=== PATIENT | female | born 1980 | race Caucasian/White ===

== ENCOUNTER 2021-07-11 08:31 | Outpatient (REF) | payer OTHER, SELFPAY ==
--- NOTE | ~2021-07-11 | MM_ITS ---
EXAMINATION: MM SCREENING DIGITAL BREAST TOMOSYNTHESIS, BILATERAL CLINICAL INFORMATION: Screening. Asymptomatic. The lifetime risk of breast cancer based on the Tyrer-Cuzick Model is 12.4%. COMPARISON: Mammography: None TECHNIQUE: Digital breast tomosynthesis is performed in both the craniocaudal and mediolateral oblique views along with computer-aided detection (CAD). Synthesized 2D images are generated from the tomosynthesis. FINDINGS: There are scattered areas of fibroglandular density (ACR BI-RADS breast composition Category b). There are no significant masses, abnormal calcifications, or other abnormalities. MM/MM tomosynthesis screening BI IMPRESSION: There are no significant changes from prior study. ASSESSMENT: BI-RADS 1: Negative RECOMMENDATION: Routine annual mammography screening. This patient's information was entered into a reminder system with a target due date for their next mammogram.
== END 2021-07-11 08:32 | disposition home or self-care (01) ==
LOC: HO.MAMMO 08:31
PROVIDERS: Visit Provider Internal Medicine
DX: Z12.31 Encounter for screening mammogram for malignant neoplasm of breast (principal)
CPT/HCPCS: 77063; 77067

== ENCOUNTER 2021-08-16 11:32 | Outpatient (REF) | payer OTHER, SELFPAY ==
[2021-08-17 03:00] LABS: CT PCR NOT DETECTED (Not Detect.); NG PCR NOT DETECTED (Not Detect.)
[2021-08-17 09:47] LABS: BV Int Neg Control Negative (Negative); BV Int Pos Control Positive (Positive)
[2021-08-22 05:51] LABS: HPV mRNA E6/E7 rflx Not Detected (Not Detected)
== END 2021-08-16 11:33 | disposition home or self-care (01) ==
LOC: HO.LAB 11:32
PROVIDERS: PCP Internal Medicine; Visit Provider Advanced Practice Midwife
DX: Z01.411 Encounter for gynecological examination (general) (routine) with abnormal findings (principal); Z11.51 Encounter for screening for human papillomavirus (HPV); B20 Human immunodeficiency virus [HIV] disease; Z20.2 Contact with and (suspected) exposure to infections with a predominantly sexual mode of transmission; R94.8 Abnormal results of function studies of other organs and systems; Z97.5 Presence of (intrauterine) contraceptive device
CPT/HCPCS: 87480; 87491; 87510; 87591; 87624; 87660; 88142

== ENCOUNTER 2022-08-21 14:10 | Outpatient (REF) | payer OTHER, SELFPAY ==
--- NOTE | ~2022-08-21 | MM_ITS ---
EXAMINATION: MM SCREENING DIGITAL BREAST TOMOSYNTHESIS, BILATERAL CLINICAL INFORMATION: Screening. Asymptomatic. The lifetime risk of breast cancer based on the Tyrer-Cuzick Model is 17%. COMPARISON: Mammography: 07/11/2021 TECHNIQUE: Digital breast tomosynthesis is performed in both the craniocaudal and mediolateral oblique views along with computer-aided detection (CAD). Synthesized 2D images are generated from the tomosynthesis. FINDINGS: There are scattered areas of fibroglandular density (ACR BI-RADS breast composition Category b). There are no significant masses, abnormal calcifications, or other abnormalities. There is a small smooth stable nodule mid upper outer right breast possibly intramammary node, similar to prior exam. No developing density. There are bilateral nipple piercings. The axilla are unremarkable. MM/MM tomosynthesis screening BI IMPRESSION: No mammographic evidence of malignancy. ASSESSMENT: BI-RADS 2: Benign RECOMMENDATION: Routine annual mammography screening. This patient's information was entered into a reminder system with a target due date for their next mammogram.
== END 2022-08-21 14:11 | disposition home or self-care (01) ==
LOC: HO.MAMMO 14:10
PROVIDERS: PCP Internal Medicine; Visit Provider Internal Medicine
DX: Z12.31 Encounter for screening mammogram for malignant neoplasm of breast (principal)
CPT/HCPCS: 77063; 77067

== ENCOUNTER 2023-04-29 14:26 | Outpatient (AMB) | payer OTHER, SELFPAY ==
--- NOTE | 2023-04-29 14:28 | A.OFFPC_ITS ---
Vital Signs 04/29/23 14:29 Height 5 ft 5 in Weight 159 lb BMI 26.5 BP 110/78 Blood Pressure Location Lt brachial Position Sitting Pulse 65 Pulse Source Auscultation Intake Visit Reasons: Annual Exam Intake Note: Patient here for an annual physical exam Ophthalmic Photographer Required: No Accompanied by: Self / Same As Patient Allergies No Known Allergies Allergy (Verified 04/29/23 14:38) Medication List - Last Reconciled 04/29/23 by Olivia Jones MD bupropion HCl 300 mg PO DAILY copper (ParaGard T 380A) intrauterine dextroamphetamine-amphetamine 20 mg 1 tab PO BID bgzgyymerl-scvxrt-kebtjmv diso 100-300-300 mg (Delstrigo) tabs PO lorazepam 1 mg PO DAILY spironolactone 25 mg PO DAILY 90 days valacyclovir 1,000 mg PO TID 7 days Tobacco use date assessed: 04/29/23 Dental Screening Dental Screen Date: 04/29/23 Did you have a dental visit in the last 12 months?: Yes Did you have a dental problem in the last 6 months where you did not have access to dental care?: No Was dental information given to patient?: Patient has dentist HPI HPI Comments History of Present Illness Details This is a 43-year-old female with mild recurrent major depression and HIV that comes for her physical exam. Last mammogram was July 2022 and was normal. Last Pap smear was 2021 and was normal. She had a colonoscopy over 5 years ago and she has a 1st cousin that at 20 years old due to colon cancer. HIV is follow by Infectious Disease in stable with medications. Depression also follow by Psychiatry and has been stable with bupropion. [facility] Medical History (Updated 04/29/23 @ 14:46 by Olivia Jones MD) Overweight (BMI 25.0-29.9) SHIRA (generalized anxiety disorder) Mild recurrent major depression Seizures Depression with anxiety ADD (attention deficit disorder) HIV (human immunodeficiency virus infection) Surgical History No history of previous surgery Family History (Updated 04/29/23 @ 14:54 by Olivia Jones MD) Father Prostate cancer Mother No problems noted. Maternal Aunt Breast cancer Unknown Colon cancer, Onset Age: 20 Social History Housing: Apartment Alcohol intake: current Alcohol intake frequency: a few times a week Alcohol type: beer, wine and hard liquor Patient Tobacco Use Status: Current everyday Tobacco user Tobacco use type: Cigarette Cigarettes Per Day: 3 e-Cigarette/Vaping Use: Never Used Second Hand Smoke Exposure: Yes service: No Current occupational status: employed Current occupational exposures/hazards: No Cognitive needs: No Hearing needs: No Vision needs: Yes Questionnaire PHQ-9 Over the last 2 weeks, how often have you been bothered by any of the following problems? 1. Little interest or pleasure in doing things: not at all 2. Feeling down, depressed, or hopeless: not at all 3. Trouble falling or staying asleep, or sleeping too much: not at all 4. Feeling tired or having little energy: not at all 5. Poor appetite or overeating: not at all 6. Feeling bad about yourself - or that you are a failure or have let yourself or your family down: not at all 7. Trouble concentrating on things, such as reading the newspaper or watching television: not at all 8. Moving or speaking so slowly that other people could have noticed. Or the opposite - being so fidgety or restless that you have been moving around a lot more than usual: not at all 9. Thoughts that you would be better off or of hurting yourself in some way: not at all Total score: 0 Depression Screening Interpretation: Negative Depression Screening Done: Yes 61948 - PHQ-9 Billing: Yes Source: Developed by Drs. Elliott Sánchez, Yessy Mayberry, Jesse Mcelroy and colleagues, with an educational anatoliy from [employer]. Thrive Questionnaire Date Thrive assessed: 04/29/23 I am a: Patient What is your living situation today?: I have a steady place to live Within the past 12 months, did the food you bought not last and you didn't have the money to get more?: Never true Within the past 12 months, did you worry whether your food would run out before you got money to buy more?: Never true Do you have trouble paying for medicines?: No Do you have trouble getting transportation to medical appointments?: No Do you have trouble paying your heating and electricity bill?: No Do you have trouble taking care of your child, family member or friend?: No Do you have trouble with day-to-day activities such as bathing, preparing meals, shopping, managing finances, etc.?: No Are you currently unemployed and looking for a job?: No Are you interested in more education?: No Please select the resources that you would like help with: None Currently or been in a relationship where the following occur: no concerns reported AUDIT C Alcohol Use Questionnaire (AUDIT-C) 1. How often do you have a drink containing alcohol?: 2-4 times a month 2. How many drinks containing alcohol do you have on a typical day when you are drinking?: 1 or 2 3. How often do you have six or more drinks on one occasion?: Never Total Score: 2 Score Reviewed/Action Taken: No SHIRA-7 AMB Questionnaire SHIRA-7 Date SHIRA - 7 assessed: 04/29/23 Feeling nervous, anxious, or on edge: 0 = Not at all Not being able to stop or control worryin = Not at all Worrying too much about different things: 0 = Not at all Trouble relaxin = Not at all Being so restless that it is hard to sit still: 0 = Not at all Becoming easily annoyed or irritable: 0 = Not at all Feeling afraid as if something awful might happen: 0 = Not at all Total SHIRA-7 score (0-4 normal; 5-9 mild; 10-14 moderate; 15-21 severe): 0 Source: Developed by Drs. Elliott Sánchez, Yessy Mayberry, Jesse Mcelroy and colleagues, with an educational anatoliy from [employer]. SHIRA-7 Assessment Billing SHIRA-7 Assessment Tool: SHIRA-7 Assessment 13881 Review of Systems Const All systems reviewed & are unremarkable except as noted in HPI and below Eyes Reports no additional complaints, Denies change in vision and Denies other visual disturbances Card Denies chest pain at rest, Denies chest pain with activity, Denies edema, Denies irregular heart rhythm, Denies claudication, Denies dyspnea, Denies dyspnea on exertion, Denies orthopnea, Denies paroxysmal nocturnal dyspnea and Denies slow heart rate Resp Denies cough, Denies dyspnea and Denies dyspnea on exertion GI Denies abdominal pain, Denies change in bowel habits, Denies excessive flatus, Denies nausea and Denies vomiting Denies urinary incontinence, Denies urinary hesitancy and Denies urinary urgency Musc Denies abnormal gait, Denies atrophy, Denies deformity and Denies limited range of motion Skin/Breast Denies bleeding lesions, Denies changing lesions and Denies rash Neuro Denies abnormal gait and Denies lack of coordination Physical exam (Primary Care) Vital Signs: Last Vital Signs BP 110/78 04/29/23 14:29 BMI result Body Mass Index 26.5 Tobacco/Smoking Status: Tobacco use Status Tobacco use date assessed 04/29/23 04/29/23 14:35 Patient Tobacco Use Status Current everyday Tobacco 04/29/23 14:35 Tobacco use type Cigarette 04/29/23 14:35 e-Cigarette/Vaping Use Never Used 04/29/23 14:35 PHQ-9: PHQ-9 Score PHQ-9: Total score 0 04/29/23 14:35 Depression Screening Interpretation: Negative Thrive Assessment: Date of Thrive Assessment Date Thrive assessed 04/24/21 04/29/23 14:35 Currently or been in a relationship where the following occur: no concerns reported Const Orientation/consciousness: patient oriented x3 HENMT Head: Yes normal to inspection, Yes normocephalic and Yes atraumatic Ears: external ears normal Eyes General: appearance normal, both eyes and all related structures Eyelids: Yes eyelids normal Conjunctivae: conjunctivae normal Neck Neck: Yes normal visual inspection and Yes supple Resp Effort & Inspection: normal respiratory effort Auscultation: clear to auscultation bilaterally Cardio Jugular venous distension: no JVD Rate: regular rate Rhythm: regular rhythm Heart sounds: S1 normal heart sound present and S2 normal heart sound present GI Inspection: Yes normal to inspection Palpation (GI): Soft to palpation and nontender Auscultation: normal bowel sounds Skin General skin exam: no rashes or lesions noted Neuro General: patient oriented x3 and no focal motor deficits Extrem General: Yes full ROM Psych Appearance: grossly normal Assessment and Plan Assessment & Plan (1) Encounter for physical examination: Code(s): Z00.00 - Encounter for general adult medical examination without abnormal findings Plan: Repeat in a year (2) Mild recurrent major depression: Code(s): F33.0 - Major depressive disorder, recurrent, mild Plan: Continue bupropion. Follow-up with psychiatry. (3) HIV (human immunodeficiency virus infection): Code(s): B20 - Human immunodeficiency virus [HIV] disease Plan: Continue HAART. Follow-up with ID. Orders: Orders Comprehensive [place]. Panel Fast Today Z00.00 - Encounter for general adult medical examination without abnormal findings Lipid Panel Today Z00.00 - Encounter for general adult medical examination without abnormal findings Referrals Gastroenterology Referral Z12.11 - Encounter for screening for malignant [place] plasm of colon Coding Level of Care Code Est Pt Prev Care 40-64y(64538) Diagnoses Encounter for physical examination Z00.00 Mild recurrent major depression F33.0 HIV (human immunodeficiency virus infection) B20 Additional Codes SHIRA-7 Assessment Billing - HSIRA-7 Assessment Tool: SHIRA-7 Assessment 74799 ([id number]) Time Spent (min) 32
[2023-04-29 14:29] VITALS: BP 110/78; PULSE 65; BMI 26.5
== END 2023-04-29 14:51 | disposition home or self-care (01) ==
PROVIDERS: PCP Internal Medicine; Visit Provider Internal Medicine
DX: Z00.00 Encounter for general adult medical examination without abnormal findings (principal); F33.0 Major depressive disorder, recurrent, mild; B20 Human immunodeficiency virus [HIV] disease
CPT/HCPCS: 99396

== ENCOUNTER 2023-08-27 13:51 | Outpatient (REF) | payer OTHER, SELFPAY ==
--- NOTE | ~2023-08-27 | MM_ITS ---
EXAMINATION: MM SCREENING DIGITAL BREAST TOMOSYNTHESIS, BILATERAL CLINICAL INFORMATION: Screening. Asymptomatic. COMPARISON: Mammography: This study is compared with prior exams dating back to 2020. TECHNIQUE: Digital breast tomosynthesis is performed in both the craniocaudal and mediolateral oblique views along with computer-aided detection (CAD). Synthesized 2D images are generated from the tomosynthesis. FINDINGS: The breasts are almost entirely fatty (ACR BI-RADS breast composition Category a). The patient has bilateral nipple rings. There are no significant masses, abnormal calcifications, or other abnormalities. MM/MM tomosynthesis screening BI IMPRESSION: No mammographic evidence of malignancy. ASSESSMENT: BI-RADS BI-RADS 1 - Negative RECOMMENDATION: Routine annual mammography screening. 1 year F/U This examination should not preclude the clinical evaluation of a suspicious palpable abnormality. This patient's information was entered into a reminder system with a target due date for their next mammogram.
== END 2023-08-27 13:52 | disposition home or self-care (01) ==
LOC: HO.MAMMO 13:51
PROVIDERS: PCP Internal Medicine; Visit Provider Internal Medicine
DX: Z12.31 Encounter for screening mammogram for malignant neoplasm of breast (principal)
CPT/HCPCS: 77063; 77067

== ENCOUNTER → 2023-08-27 14:00 | Outpatient (BNV) | payer OTHER, SELFPAY | PROVIDERS: PCP Internal Medicine; Visit Provider Radiology Diagnostic Radiology | DX: Z12.31 Encounter for screening mammogram for malignant neoplasm of breast (principal) | CPT/HCPCS: 77063; 77067 ==

== ENCOUNTER 2024-05-03 13:55 | Outpatient (AMB) | payer OTHER, SELFPAY ==
--- NOTE | 2024-05-03 14:00 | A.OFFPC_ITS ---
Vital Signs 05/03/24 14:02 Height 5 ft 5 in Weight 160 lb 4 oz BMI 26.7 BP 110/68 Blood Pressure Location Lt brachial Position Sitting Pulse 58 Pulse Source Pulse Oximeter Pulse Oximetry (%) 98 Oxygen Delivery Method Room Air Intake Visit Reasons: Annual PE Intake Note: Patient is here today for a physical. Fire Manager Required: No Can Worker: Not Required per policy Accompanied by: Self / Same As Patient Allergies No Known Allergies Allergy (Verified 05/03/24 14:01) Medication List - Last Reconciled 05/03/24 by Mc Vivar MD bupropion HCl XL 300 mg PO DAILY copper (ParaGard T 380A) intrauterine dextroamphetamine-amphetamine 10 mg (Adderall) 10 mg PO DAILY cwpjeyhnvs-nptzti-azxsdan diso 100-300-300 mg (Delstrigo) [facility] lorazepam 1 mg PO DAILY semaglutide (weight loss) (Wegovy) 1.7 mg subcut QWEEK spironolactone 25 mg PO DAILY valacyclovir 1,000 mg PO TID 7 days Tobacco use date assessed: 05/03/24 Dental Screening Dental Screen Date: 05/03/24 Did you have a dental visit in the last 12 months?: Yes Did you have a dental problem in the last 6 months where you did not have access to dental care?: No Was dental information given to patient?: Patient has dentist HPI Annual PE HPI Details 44-year-old female being seen for the 1s t time with a history of HIV infection attention deficits, seizures depression with generalized anxiety disorder for physical exam. Patient is up-to-date with mammogram colonoscopy 2022. [facility] Medical History (Updated 05/03/24 @ 18:43 by Mc Vivar MD) Screen for colon cancer Overweight (BMI 25.0-29.9) SHIRA (generalized anxiety disorder) Mild recurrent major depression Seizures Depression with anxiety ADD (attention deficit disorder) HIV (human immunodeficiency virus infection) Surgical History No history of previous surgery Family History Father Prostate cancer Mother No problems noted. Maternal Aunt Breast cancer Unknown Colon cancer, Onset Age: 18 Social History (Updated 05/03/24 @ 14:16 by Mc Vivar MD) Housing: Apartment Alcohol intake: current Alcohol intake frequency: a few times a week Alcohol type: beer, wine and hard liquor Comment: 2x a week 2-3 drinks Patient Tobacco Use Status: Former Tobacco user Tobacco use type: Cigarette Cigarette Packs Per Day: 0.25 Cigarettes Per Day: 3 Years Smoked: quit 2022( 1/2 pack a day 18 - 43 y/o) e-Cigarette/Vaping Use: Never Used Second Hand Smoke Exposure: Yes service: No Current occupational status: employed Current occupational exposures/hazards: No Cognitive needs: No Hearing needs: No Vision needs: Yes Questionnaire PHQ-9 Over the last 2 weeks, how often have you been bothered by any of the following problems? 1. Little interest or pleasure in doing things: not at all 2. Feeling down, depressed, or hopeless: not at all 3. Trouble falling or staying asleep, or sleeping too much: several days 4. Feeling tired or having little energy: several days 5. Poor appetite or overeating: several days 6. Feeling bad about yourself - or that you are a failure or have let yourself or your family down: several days 7. Trouble concentrating on things, such as reading the newspaper or watching television: not at all 8. Moving or speaking so slowly that other people could have noticed. Or the opposite - being so fidgety or restless that you have been moving around a lot more than usual: not at all 9. Thoughts that you would be better off or of hurting yourself in some way: not at all Total score: 4 Depression Screening Interpretation: Positive Depression Screening Done: Yes Source: Developed by Drs. Elliott Sánchez, Yessy Mayberry, Jesse Mcelroy and colleagues, with an educational anatoliy from [employer]. Thrive Questionnaire Date Thrive assessed: 05/03/24 I am a: Patient What is your living situation today?: I have a steady place to live Within the past 12 months, did the food you bought not last and you didn't have the money to get more?: Never true Within the past 12 months, did you worry whether your food would run out before you got money to buy more?: Never true Do you have trouble paying for medicines?: No Do you have trouble getting transportation to medical appointments?: No Do you have trouble paying your heating and electricity bill?: No Do you have trouble taking care of your child, family member or friend?: No Do you have trouble with day-to-day activities such as bathing, preparing meals, shopping, managing finances, etc.?: No Are you currently unemployed and looking for a job?: No Are you interested in more education?: No Please select the resources that you would like help with: None Currently or been in a relationship where the following occur: I choose not to answer THRIVE Score: 0 AUDIT C Alcohol Use Questionnaire (AUDIT-C) 1. How often do you have a drink containing alcohol?: 2-3 times a week 2. How many drinks containing alcohol do you have on a typical day when you are drinking?: 1 or 2 3. How often do you have six or more drinks on one occasion?: Never Total Score: 3 SHIRA-7 AMB Questionnaire SHIRA-7 Date SHIRA - 7 assessed: 05/03/24 Feeling nervous, anxious, or on edge: 0 = Not at all Not being able to stop or control worryin = Not at all Worrying too much about different things: 0 = Not at all Trouble relaxin = Not at all Being so restless that it is hard to sit still: 0 = Not at all Becoming easily annoyed or irritable: 0 = Not at all Feeling afraid as if something awful might happen: 0 = Not at all Total SHIRA-7 score (0-4 normal; 5-9 mild; 10-14 moderate; 15-21 severe): 0 Source: Developed by Drs. Elliott Sánchez, Yessy Mayberry, Jesse Mcelroy and colleagues, with an educational anatoliy from [employer]. Review of Systems Const Denies poor appetite and Denies weakness Eyes Denies no additional complaints ENT Reports Normal hearing present, Denies dizziness, Denies nasal congestion, Denies tinnitus and Denies sore throat Card Denies chest pain, Denies syncope, Denies rapid heart rate and Denies dyspnea Resp Denies cough and Denies dyspnea GI Denies change in stool character, Reports constipation, Denies diarrhea, Denies nausea and Denies vomiting Denies urinary frequency, Denies difficulty voiding and Denies dysuria Neuro Reports Normal hearing present, Denies confusion, Denies dizziness, Denies syncope and Denies weakness Psych Denies confusion Physical exam (Primary Care) Vital Signs: Last Vital Signs Pulse 58 05/03/24 14:02 BP 110/68 05/03/24 14:02 Pulse Ox 98 05/03/24 14:02 Oxygen Delivery Method Room Air 05/03/24 14:02 BMI result Body Mass Index 26.7 Tobacco/Smoking Status: Tobacco use Status Tobacco use date assessed 05/03/24 05/03/24 14:04 Patient Tobacco Use Status Former Tobacco user 05/03/24 14:16 Tobacco use type Cigarette 05/03/24 14:16 e-Cigarette/Vaping Use Never Used 05/03/24 14:16 PHQ-9: PHQ-9 Score PHQ-9: Total score 4 05/03/24 14:04 Depression Screening Interpretation: Positive Thrive Assessment: Date of Thrive Assessment Date Thrive assessed 05/03/24 05/03/24 14:04 Currently or been in a relationship where the following occur: I choose not to answer Const General: No confusion Orientation/consciousness: No confusion HENMT Head: Yes normocephalic Ears: external ears normal and TM's normal bilaterally Face and sinus: Yes normal facial exam Mouth: moist mucous membranes Throat: Yes tonsils normal Eyes Conjunctivae: conjunctivae normal Pupils: Equal, round and reactive pupils present and Pupil accommodation reflex normal Direct Ophthalmoscopy: normal light reflex Neck Neck: No lymphadenopathy Thyroid: Thyroid normal Chest Chest palpation & inspection: normal inspection of the chest Resp Effort & Inspection: normal respiratory effort and no audible wheezes Auscultation: clear to auscultation bilaterally, no crackles, no wheezes and lung sounds not diminished Cardio Rate: regular rate Rhythm: regular rhythm Peripheral pulses: radial pulses present and dorsalis pedis present GI Palpation (GI): no masses Auscultation: normal bowel sounds and normoactive bowel sounds Rectal Exam - Female: deferred Skin General skin exam: no rashes or lesions noted Rashes: no rashes Neuro General: No confusion Cranial nerves: Yes Equal, round and reactive pupils present and Yes Normal hearing present Cognition (Neuro): normal cognition Gait exam (Neuro): Normal gait present Motor exam (neuro): 5/5 motor strength present throughout Deep tendon reflexes (DTR's): Right brachioradialis reflex intensity grade: 2+, Left brachioradialis reflex intensity grade: 2+, Right patellar reflex intensity grade: 2+ and Left patellar reflex intensity grade: 2+ Extrem General: No edema Coding Level of Care Code Est Pt Prev Care 40-64y(41937) Diagnoses Annual physical exam Z00.00 Asymptomatic HIV infection, with no history of HIV-related illness Z21 HIV symptom status: asymptomatic, with no history of HIV-related illness Attention deficit disorder, unspecified type F98.8 Attention deficit type: unspecified type SHIRA (generalized anxiety disorder) F41.1 Hair loss L65.9 Assessment & Plan Assessment & Plan (1) Annual physical exam: Code(s): Z00.00 - Encounter for general adult medical examination without abnormal findings Category: Medical Plan: Patient is advised to eat healthy, keep well hydrated, keep active and have adequate sleep. (2) HIV (human immunodeficiency virus infection): Comment: [facility] infectious disease Code(s): B20 - Human immunodeficiency virus [HIV] disease Category: Medical Qualifiers: HIV symptom status: asymptomatic, with no history of HIV-related illness Qualified Code(s): Z21 - Asymptomatic human immunodeficiency virus [HIV] infection status Plan: Continue to follow-up with infectious disease [facility] (3) ADD (attention deficit disorder): Comment: Continue to follow-up with psychiatry [place] Code(s): F98.8 - Other specified behavioral and emotional disorders with onset usually occurring in childhood and adolescence Category: Medical Qualifiers: Attention deficit type: unspecified type Qualified Code(s): F98.8 - Other specified behavioral and emotional disorders with onset usually occurring in childhood and adolescence Plan: Continue to follow-up with psychiatry (4) SHIRA (generalized anxiety disorder): Comment: Continue to follow-up with psychiatry Code(s): F41.1 - Generalized anxiety disorder Category: Medical Plan: Continue to follow-up with psychiatry (5) Hair loss: Code(s): L65.9 - Nonscarring hair loss, unspecified Category: Medical Plan: Patient is being treated with spironolactone. Advised blood work Orders: Orders Complete Blood Count Auto Diff Today F98.8 - Other specified behavioral and emotional disorders with onset usually occurring in childhood and adolescence Comprehensive Met. Panel Today F98.8 - Other specified behavioral and emotional disorders with onset usually occurring in childhood and adolescence Vitamin D 25-OH Total Today F98.8 - Other specified behavioral and emotional disorders with onset usually occurring in childhood and adolescence Free T4 (Free Thyroxine) Today F98.8 - Other specified behavioral and emotional disorders with onset usually occurring in childhood and adolescence Thyroid Stimulating Hormone Today F98.8 - Other specified behavioral and emotional disorders with onset usually occurring in childhood and adolescence Lipid Panel Today E78.00 - Pure hypercholesterolemia, unspecified, F98.8 - Other specified behavioral and emotional disorders with onset usually occurring in childhood and adolescence Vitamin B12 and Folate Today F98.8 - Other specified behavioral and emotional disorders with onset usually occurring in childhood and adolescence UA w Microscopic Today F98.8 - Other specified behavioral and emotional disorders with onset usually occurring in childhood and adolescence
[2024-05-03 14:02] VITALS: BP 110/68; PULSE 58; O2SAT 98; BMI 26.7
== END 2024-05-03 15:37 | disposition home or self-care (01) ==
PROVIDERS: PCP Internal Medicine; Visit Provider Internal Medicine
DX: Z00.00 Encounter for general adult medical examination without abnormal findings (principal); Z21 Asymptomatic human immunodeficiency virus [HIV] infection status; F98.8 Other specified behavioral and emotional disorders with onset usually occurring in childhood and adolescence; F41.1 Generalized anxiety disorder; L65.9 Nonscarring hair loss, unspecified

== ENCOUNTER → 2024-05-03 13:55 | Outpatient (BNVA) | payer OTHER, SELFPAY | PROVIDERS: PCP Internal Medicine; Visit Provider Internal Medicine ==

== ENCOUNTER 2024-06-28 14:56 | Outpatient (AMB) | payer OTHER, SELFPAY ==
--- NOTE | 2024-06-28 14:57 | A.OFFPC_ITS ---
Intake Visit Reasons: COVID Pos. Allergies No Known Allergies Allergy (Verified 06/28/24 14:57) Medication List - Last Reconciled 06/28/24 by Mc Vivar MD copper (ParaGard T 380A) intrauterine pslbbvmepw-sipjms-nxcytbc diso 100-300-300 mg (Delstrigo) [facility] lorazepam 1 mg PO DAILY nirmatrelvir-ritonavir 300 mg (150 mg x 2)-100 mg (Paxlovid) take TWO 150 mg tablets of nirmatrelvir with ONE 100 mg tablet of ritonavir twice daily for 5 days PO semaglutide (weight loss) (Wegovy) 1.7 mg subcut QWEEK valacyclovir 1,000 mg PO TID 7 days Tobacco use date assessed: 05/03/24 Dental Screening Dental Screen Date: 05/03/24 HPI COVID Pos. HPI Details 44-year-old female with a history of HIV ADD generalized anxiety disorder calling in through Telehealth for COVID-19 infection. Patient has been sneezing 2 days ago and then started having some cough with sore throat and tested positive today for COVID-19 infection [facility] Medical History (Updated 06/28/24 @ 17:25 by Mc Vivar MD) Screen for colon cancer Overweight (BMI 25.0-29.9) SHIRA (generalized anxiety disorder) Mild recurrent major depression Seizures Depression with anxiety ADD (attention deficit disorder) HIV (human immunodeficiency virus infection) Surgical History No history of previous surgery Family History Father Prostate cancer Mother No problems noted. Maternal Aunt Breast cancer Unknown Colon cancer, Onset Age: 20 Social History (Updated 05/03/24 @ 14:16 by Mc Vivar MD) Housing: Apartment Alcohol intake: current Alcohol intake frequency: a few times a week Alcohol type: beer, wine and hard liquor Comment: 2x a week 2-3 drinks Patient Tobacco Use Status: Former Tobacco user Tobacco use type: Cigarette Cigarette Packs Per Day: 0.25 Cigarettes Per Day: 3 Years Smoked: quit 2022( 1/2 pack a day 18 - 43 y/o) e-Cigarette/Vaping Use: Never Used Second Hand Smoke Exposure: Yes service: No Current occupational status: employed Current occupational exposures/hazards: No Cognitive needs: No Hearing needs: No Vision needs: Yes Questionnaire PHQ-9 Over the last 2 weeks, how often have you been bothered by any of the following problems? 1. Little interest or pleasure in doing things: not at all 2. Feeling down, depressed, or hopeless: not at all 3. Trouble falling or staying asleep, or sleeping too much: several days 4. Feeling tired or having little energy: several days 5. Poor appetite or overeating: several days 6. Feeling bad about yourself - or that you are a failure or have let yourself or your family down: several days 7. Trouble concentrating on things, such as reading the newspaper or watching television: not at all 8. Moving or speaking so slowly that other people could have noticed. Or the opposite - being so fidgety or restless that you have been moving around a lot more than usual: not at all 9. Thoughts that you would be better off or of hurting yourself in some way: not at all Total score: 4 Depression Screening Interpretation: Positive Depression Screening Done: Yes Source: Developed by Drs. Elliott Sánchez, Jesse Tidwell and colleagues, with an educational anatoliy from [employer]. Thrive Questionnaire Date Thrive assessed: 05/03/24 AUDIT C Alcohol Use Questionnaire (AUDIT-C) 1. How often do you have a drink containing alcohol?: 2-3 times a week 2. How many drinks containing alcohol do you have on a typical day when you are drinking?: 1 or 2 3. How often do you have six or more drinks on one occasion?: Never Total Score: 3 SHIRA-7 AMB Questionnaire SHIRA-7 Date SHIRA - 7 assessed: 05/03/24 Source: Developed by Drs. Elliott Sánchez, Jesse Tidwell and colleagues, with an educational anatoliy from [employer]. Physical exam (Primary Care) Tobacco/Smoking Status: Tobacco use Status Tobacco use date assessed 05/03/24 06/28/24 14:58 Patient Tobacco Use Status Former Tobacco user 06/28/24 14:58 Tobacco use type Cigarette 06/28/24 14:58 e-Cigarette/Vaping Use Never Used 06/28/24 14:58 PHQ-9: PHQ-9 Score PHQ-9: Total score 4 06/28/24 14:58 Depression Screening Interpretation: Positive Thrive Assessment: Date of Thrive Assessment Date Thrive assessed 05/03/24 06/28/24 14:58 Telehealth Telehealth Telehealth Platform: Telephone Location of provider rendering services: practice address Location of patient: address on file Patient Identification confirmed using: Name, : Yes Telehealth method: voice only Patient verbally consented to treatment: Yes Patient verbally consented to billing insurance company: Yes Patient informed of any privacy concerns related to visit: Yes Minutes spent on Phone/Video with Pt.: 15 Coding Level of Care Code Tele Est Pt Level 3 (60670) Diagnoses COVID-19 virus infection U07.1 Assessment & Plan Assessment & Plan (1) COVID-19 virus infection: Comment: 05/29/2024 Code(s): U07.1 - COVID-19 Category: Medical Plan: For the sore throat can take Cepacol lozenges, discussed about Delsym to help with dry cough so she can rest and advised to increase oral fluids. Patient also can take Tylenol for chills and fever. Antiviral prescription sent in. Medications: New nirmatrelvir-ritonavir 300 mg (150 mg x 2)-100 mg (Paxlovid) take TWO 150 mg tablets of nirmatrelvir with ONE 100 mg tablet of ritonavir twice daily for 5 days PO 30 ea 0RF U07.1 - COVID-19
== END 2024-06-28 18:12 | disposition home or self-care (01) ==
LOC: HO.HMCH 14:56
PROVIDERS: PCP Internal Medicine; Visit Provider Internal Medicine
DX: U07.1 COVID-19 (principal)

== ENCOUNTER → 2024-06-28 14:56 | Outpatient (BNVA) | payer OTHER, SELFPAY | PROVIDERS: PCP Internal Medicine; Visit Provider Internal Medicine ==

== ENCOUNTER 2024-09-30 14:05 | Outpatient (REF) | payer OTHER, SELFPAY ==
--- OUTSIDE RECORDS SUMMARY | 2024-09-30 15:47 | XMS_ITS | Clinical Summary ---
Author Organization [facility] Address [address] [place] [address] Care Team Providers Care Running Instructor Name Role Phone Unavailable Primary Care Provider Unavailabl e Allergies No known active allergies Medications Lorazepam 2 MG Tab 1 TABLET TWICE DAILY Active BuPROPion HCl (WELLBUTRIN XL) 300 MG TABLET SR 24 HR 1 TABLET TWICE DAILY Active Amphetamine-Dext roamphetamine (ADDERALL, 20MG,) 20 MG Tab 1 TABLET TWICE DAILY Active Active Problems Problem Noted Date Diagnosed Date History of HIV infection 01/23/2017 Social History Tobacco Use Types Packs/Day Years Used Date Smoking Tobacco: Never Assessed Comments No Sex and Gender Information Value Date Recorded Sex Assigned at Not on file Legal Sex Female 3:02 PM EDT Gender Identity Not on file Sexual Orientation Not on file Last Filed Vital Signs Vital Sign Reading Time Taken Comments Blood Pressure 119/72 01/23/2017 3:16 PM EDT Pulse 59 01/23/2017 3:16 PM EDT Temperature 36.7 ??C (98 ??F) 01/23/2017 3:16 PM EDT Respiratory Rate 16 01/23/2017 3:16 PM EDT Oxygen Saturation - - Inhaled Oxygen Concentration - - Weight 59 kg (130 lb) 01/23/2017 3:16 PM EDT Height - - Body Mass Index - - Plan of Treatment Health Maintenance Due Date Last Done Comments Hepatitis C Screening 1978 Pap Smear 1994 DTaP/Tdap/Td (1 - Tdap) 1996 Hep B (1 of 3 - 19+ 3-dose series) 1997 Mammogram/Breast Imaging 2018 COVID-19 Vaccine ( - 2023-2 5 season) 2024 Influenza (#1) 2024 Zoster (Shingrix) (1 of 2) 2028 HPV Vaccine Aged Out No longer eligi ble based on patient's age to complete this topic Hep A Aged Out No longer eligi ble based on patient's age to complete this topic Hib Aged Out No longer eligi ble based on patient's age to complete this topic Meningococcal ACWY Aged Out No longer eligible based on patient's age to complete this topic Pneumococcal Aged Out No longer eligi ble based on patient's age to complete this topic Insurance * Guarantor: KRISTIN SMITH Account Type Relation to Patient Date of Phone Billing Address Personal/Family [address] [place] [address] [place] [address] [employer]
--- OUTSIDE RECORDS SUMMARY | 2024-09-30 15:47 | XMS_ITS ---
Patient Encounters Created on: September 27, 2024 Kristin Lamb : 1980 Sex: Female Author Name Domenica Howell Address [address] [place], [place] [id number] [facility]. Address [address] [place], [place] [id number]
== END 2024-09-30 14:06 | disposition home or self-care (01) ==
LOC: HO.MAMMO 14:05
PROVIDERS: PCP Internal Medicine; Visit Provider Internal Medicine
DX: Z12.31 Encounter for screening mammogram for malignant neoplasm of breast (principal)
CPT/HCPCS: 77063; 77067

== ENCOUNTER → 2024-09-30 14:15 | Outpatient (BNV) | payer OTHER, SELFPAY | PROVIDERS: PCP Internal Medicine; Visit Provider Internal Medicine | DX: Z12.31 Encounter for screening mammogram for malignant neoplasm of breast (principal) | CPT/HCPCS: 77063; 77067 ==

== ENCOUNTER 2024-12-22 15:32 | Outpatient (AMB) | payer OTHER, SELFPAY ==
--- OUTSIDE RECORDS SUMMARY | 2024-12-22 15:35 | XMS_ITS | Clinical Summary ---
Author Organization [facility] Address [address] [place] [address] Care Team Providers Care Inspector Cold Working Name Role Phone Unavailable Primary Care Provider [...] Patient Date of Phone Billing Address Personal/Family [address] [place] [address] [place] [address] [employer]
--- NOTE | 2024-12-22 15:38 | A.OFFPC_ITS ---
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 Accompanied by: Self / Same As Patient Allergies No Known Allergies Allergy (Verified 12/22/24 15:49) Medication List - Last Reconciled 12/22/24 by Olivia Jones MD copper (ParaGard T 380A) intrauterine dextroamphetamine-amphetamine 10 mg 1 tab PO BID lorazepam 1 mg PO DAILY semaglutide (weight loss) (Wegovy) 1.7 mg subcut QWEEK valacyclovir 1,000 mg PO TID 7 days Tobacco use date assessed: 12/22/24 Dental Screening Dental Screen Date: 12/22/24 Did you have a dental visit in the last 12 months?: Yes Did you have a dental problem in the last 6 months where you did not have access to dental care?: No Was dental information given to patient?: Patient has dentist HPI HPI Comments History of Present Illness Details The patient is a 44-year-old female presenting with HIV, 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 The patient reports successful weight management with Wegovy, having lost 35 pounds, and credits the medication for helping to quit smoking and reduce alcohol intake. She has a history of tobacco use disorder but has transitioned to vaping. Alcohol consumption is limited to social settings, around two to three times per week. She has a history of depression, with a PHQ-9 score indicating mild symptoms, and receives care from both a counselor and psychiatrist. Additionally, she uses ketamine therapy, with recent treatment in August. The patient manages ADHD with Adderall and utilizes organizational strategies to aid her memory. Her HIV is follow by Infectious Disease and has been stable. Has not had a seizure since 2018. Family history is significant for paternal prostate cancer. The patient previously underwent a colonoscopy in 2022 and is up to date with mammograms. She has an IUD, inserted in 2012, and is experiencing spaced-out menstrual cycles, likely due to perimenopause. She expresses concern over the potential discontinuation of her medication coverage. [facility] Medical History Screen for colon cancer Overweight (BMI 25.0-29.9) SHIRA (generalized anxiety disorder) Mild recurrent major depression Seizures Depression with anxiety ADD (attention deficit disorder) HIV (human immunodeficiency virus infection) Surgical History No history of previous surgery Family History Father Prostate cancer Mother No problems noted. Maternal Aunt Breast cancer Unknown Colon cancer, Onset Age: 20 Social History (Updated 12/22/24 @ 15:55 by Olivia Jones MD) Housing: Apartment Alcohol intake: current Alcohol intake frequency: a few times a week Alcohol type: beer, wine and hard liquor Comment: 2x a week 2-3 drinks Patient Tobacco Use Status: Former Tobacco user Tobacco use type: Cigarette Cigarette Packs Per Day: 0.25 Cigarettes Per Day: 3 Years Smoked: quit 2022( 1/2 pack a day 16 - 43 y/o) e-Cigarette/Vaping Use: Never Used Second Hand Smoke Exposure: Yes service: No Current occupational status: employed Current occupational exposures/hazards: No Cognitive needs: No Hearing needs: No Vision needs: Yes Questionnaire PHQ-9 Over the last 2 weeks, how often have you been bothered by any of the following problems? 1. Little interest or pleasure in doing things: several days 2. Feeling down, depressed, or hopeless: several days 3. Trouble falling or staying asleep, or sleeping too much: several days 4. Feeling tired or having little energy: several days 5. Poor appetite or overeating: not at all 6. Feeling bad about yourself - or that you are a failure or have let yourself or your family down: several days 7. Trouble concentrating on things, such as reading the newspaper or watching television: not at all 8. Moving or speaking so slowly that other people could have noticed. Or the opposite - being so fidgety or restless that you have been moving around a lot more than usual: not at all 9. Thoughts that you would be better off or of hurting yourself in some way: not at all Total score: 5 Depression Screening Interpretation: Positive Depression Screening Follow-up: Existing condition, In treatment, Community Mental Health Worker F/U and Follow- up Visit Requested Depression Screening Done: Yes 12532 - PHQ-9 Billing: Yes Source: Developed by Drs. Elliott Sánchez, Yessy Mayberry, Jesse Mcelroy and colleagues, with an educational anatoliy from [employer]. Thrive Questionnaire Date Thrive assessed: 12/20/24 I am a: Patient What is your living situation today?: I have a steady place to live Within the past 12 months, did the food you bought not last and you didn't have the money to get more?: Never true Within the past 12 months, did you worry whether your food would run out before you got money to buy more?: Never true Do you have trouble paying for medicines?: No Do you have trouble getting transportation to medical appointments?: No Do you have trouble paying your heating and electricity bill?: No Do you have trouble taking care of your child, family member or friend?: No Do you have trouble with day-to-day activities such as bathing, preparing meals, shopping, managing finances, etc.?: No Are you currently unemployed and looking for a job?: No Are you interested in more education?: No Please select the resources that you would like help with: None Currently or been in a relationship where the following occur: No concerns reported THRIVE Score: 0 AUDIT C Alcohol Use Questionnaire (AUDIT-C) 1. How often do you have a drink containing alcohol?: 2-3 times a week 2. How many drinks containing alcohol do you have on a typical day when you are drinking?: 1 or 2 3. How often do you have six or more drinks on one occasion?: Never Total Score: 3 SHIRA-7 AMB Questionnaire SHIRA-7 Date SHIRA - 7 assessed: 12/22/24 Feeling nervous, anxious, or on edge: 1 = Several days Not being able to stop or control worryin = Not at all Worrying too much about different things: 1 = Several days Trouble relaxin = Several days Being so restless that it is hard to sit still: 0 = Not at all Becoming easily annoyed or irritable: 0 = Not at all Feeling afraid as if something awful might happen: 0 = Not at all Total SHIRA-7 score (0-4 normal; 5-9 mild; 10-14 moderate; 15-21 severe): 3 Source: Developed by Drs. Elliott Sánchez, Yessy Mayberry, Jesse Mcelroy and colleagues, with an educational anatoliy from [employer]. SHIRA-7 Assessment Billing SHIRA-7 Assessment Tool: SHIRA-7 Assessment 76129 Review of Systems Const All systems reviewed & are unremarkable except as noted in HPI and below Card Denies chest pain at rest, Denies chest pain with activity, Denies edema, Denies irregular heart rhythm, Denies claudication, Denies dyspnea, Denies dyspnea on exertion, Denies orthopnea, Denies paroxysmal nocturnal dyspnea and Denies slow heart rate Resp Denies cough, Denies dyspnea and Denies dyspnea on exertion Neuro Denies lack of coordination Physical exam (Primary Care) Vital Signs: Last Vital Signs BP 118/72 12/22/24 15:40 BMI result Body Mass Index 23.6 Tobacco/Smoking Status: Tobacco use Status Tobacco use date assessed 12/22/24 12/22/24 15:45 Patient Tobacco Use Status Former Tobacco user 12/22/24 15:55 Tobacco use type Cigarette 12/22/24 15:55 e-Cigarette/Vaping Use Never Used 12/22/24 15:55 PHQ-9: PHQ-9 Score PHQ-9: Total score 5 12/22/24 15:55 Depression Screening Interpretation: Positive Depression Screening Follow-up: Existing condition, In treatment, Community Mental Health Worker F/U and Follow- up Visit Requested Thrive Assessment: Date of Thrive Assessment Date Thrive assessed 12/20/24 12/22/24 15:45 Currently or been in a relationship where the following occur: No concerns reported Resp Effort & Inspection: normal respiratory effort Auscultation: clear to auscultation bilaterally Cardio Jugular venous distension: no JVD Rate: regular rate Rhythm: regular rhythm Heart sounds: S1 normal heart sound present and S2 normal heart sound present Extrem General: Yes full ROM Coding Level of Care Code Est Pt Level 4 (10493) Complex EM visit Add On G2211 Diagnoses Mild recurrent major depression F33.0 SHIRA (generalized anxiety disorder) F41.1 Seizures R56.9 Attention deficit disorder, unspecified type F98.8 Attention deficit type: unspecified type Asymptomatic HIV infection, with no history of HIV-related illness Z21 HIV symptom status: asymptomatic, with no history of HIV-related illness Additional Codes SHIRA-7 Assessment Billing - SHIRA-7 Assessment Tool: SHIRA-7 Assessment 39277 ([id number]) PHQ-9 - 05413 - PHQ-9 Billing: Yes ([id number]) Time Spent (min) 23 Assessment & Plan Assessment & Plan (1) Mild recurrent major depression: Code(s): F33.0 - Major depressive disorder, recurrent, mild Category: Medical (2) SHIRA (generalized anxiety disorder): Comment: Continue to follow-up with psychiatry Code(s): F41.1 - Generalized anxiety disorder Category: Medical (3) Seizures: Comment: 2019- alcohol Code(s): R56.9 - Unspecified convulsions Category: Medical (4) ADD (attention deficit disorder): Comment: Continue to follow-up with psychiatry [place] Code(s): F98.8 - Other specified behavioral and emotional disorders with onset usually occurring in childhood and adolescence Category: Medical Qualifiers: Attention deficit type: unspecified type Qualified Code(s): F98.8 - Other specified behavioral and emotional disorders with onset usually occurring in childhood and adolescence (5) HIV (human immunodeficiency virus infection): Comment: [facility] infectious disease Code(s): B20 - Human immunodeficiency virus [HIV] disease Category: Medical Qualifiers: HIV symptom status: asymptomatic, with no history of HIV-related illness Qualified Code(s): Z21 - Asymptomatic human immunodeficiency virus [HIV] infection status Plan We discussed continuing the prescribed Wegovy for weight management and maintaining insurance coverage. I advised continuing her current ADHD management with Adderall and her organizational strategies. For depression, ongoing counseling and psychiatric care are vital, given her PHQ-9 score. We acknowledged her successful transition to vaping and encouraged limiting alcohol intake. Regarding her IUD, we will address any perimenopausal symptoms and follow up with gynecological care. The patient will have a follow-up physical exam in April and should complete blood work prior to the visit. Patient was informed and verbally consented to the use of an ambient scribe for clinic note documentation during this visit. I discussed with the patient the continuation of Wegovy for weight management, emphasizing the importance of maintaining insurance coverage. We reviewed her current ADHD treatment with Adderall and the benefits of her organizational strategies. I highlighted the importance of continued counseling and psychiatric support for her mild depression. We acknowledged her successful transition from smoking to vaping, discussing the health benefits. Regarding alcohol use, I advised maintaining her current social drinking pattern. We discussed her IUD and potential perimenopausal symptoms, recommending a follow-up with gynecological care. I reminded her about the upcoming physical exam in April and the importance of completing blood work beforehand. The patient expressed understanding and agreement with the management plan. Orders: Orders Comprehensive [place]. Panel Fast 5 Months F33.0 - Major depressive disorder, recurrent, mild Lipid Panel 5 Months E78.5 - Hyperlipidemia, unspecified Patient Instructions: - Continue Wegovy for weight management; monitor insurance coverage. - Maintain current ADHD management with Adderall. - Continue counseling and psychiatric care for depression. - Use vaping as an alternative to smoking and limit alcohol to social settings. - Schedule a gynecological follow-up for IUD evaluation. - Complete blood work before the April physical exam. - Call if you have any new or worsening symptoms or concerns.
[2024-12-22 15:40] VITALS: BP 118/72; BMI 23.6
== END 2024-12-22 16:01 | disposition home or self-care (01) ==
LOC: HO.HMCH 15:33
PROVIDERS: PCP Internal Medicine; Visit Provider Internal Medicine
DX: R56.9 Unspecified convulsions (principal); Z21 Asymptomatic human immunodeficiency virus [HIV] infection status; F33.0 Major depressive disorder, recurrent, mild; F41.1 Generalized anxiety disorder; F98.8 Other specified behavioral and emotional disorders with onset usually occurring in childhood and adolescence

== ENCOUNTER → 2024-12-22 15:32 | Outpatient (BNVA) | payer OTHER, SELFPAY | PROVIDERS: PCP Internal Medicine; Visit Provider Internal Medicine | DX: F33.0 Major depressive disorder, recurrent, mild (principal); F41.1 Generalized anxiety disorder; R56.9 Unspecified convulsions; F98.8 Other specified behavioral and emotional disorders with onset usually occurring in childhood and adolescence; Z21 Asymptomatic human immunodeficiency virus [HIV] infection status | CPT/HCPCS: 96127 ==

== ENCOUNTER 2025-05-04 09:28 | Outpatient (REF) | payer OTHER, SELFPAY ==
[2025-05-04 10:55] LABS: Alanine Aminotransferase 15 U/L (0-31); Albumin Level 4.3 g/dL (3.5-5.0); Alkaline Phosphatase 72 U/L (39-117); Anion Gap 12 (12-20); Aspartate Amino Transferase 25 U/L (5-31); Blood Urea Nitrogen 9 mg/dL (9-16); Calcium 9.7 mg/dL (8.4-10.2); Carbon Dioxide 23 mmol/L (22-29); Chloride 110 mmol/L (96-108); Cholesterol 186 mg/dL (<200); Estimated Glomerular Filt Rate 56; HDL Cholesterol 59 mg/dL (>40); Potassium 4.4 mmol/L (3.3-5.1); Sodium 141 mmol/L (135-145); Total Protein 7.4 g/dL (6.5-8.0); Triglycerides 153 mg/dL (<150)
== END 2025-05-04 09:29 | disposition home or self-care (01) ==
LOC: HO.LAB 09:28
PROVIDERS: PCP Internal Medicine; Visit Provider Internal Medicine
DX: F33.0 Major depressive disorder, recurrent, mild (principal); E78.5 Hyperlipidemia, unspecified
CPT/HCPCS: 36415; 80053; 80061

== ENCOUNTER 2025-05-09 16:31 | Outpatient (AMB) | payer OTHER, SELFPAY ==
[2025-05-09 16:33] VITALS: BP 112/84; PULSE 69; TEMP 36.1; O2SAT 98; BMI 24.2
--- NOTE | 2025-05-09 16:33 | MHC.PC.OV ---
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 Accompanied by: Self / Same As Patient Allergies No Known Allergies Allergy (Verified 05/09/25 16:42) Medication List - Last Reconciled 05/09/25 by Olivia Jones MD [id number] ala 30-120-15 mg (Biktarvy) tabs PO bupropion HCl XL 450 mg PO DAILY copper (ParaGard T 380A) intrauterine dextroamphetamine-amphetamine 10 mg 1 tab PO BID lorazepam 1 mg PO DAILY semaglutide (weight loss) (Wegovy) 2.4 mg subcut QWEEK valacyclovir 1,000 mg PO TID 7 days Tobacco use date assessed: 05/09/25 Dental Screening Dental Screen Date: 05/09/25 Did you have a dental visit in the last 12 months?: Yes Did you have a dental problem in the last 6 months where you did not have access to dental care?: No Was dental information given to patient?: Patient has dentist HPI HPI Comments History of Present Illness Details The patient is a 45-year-old female presenting for a physical examination and preventative care. She has a history of Human Immunodeficiency Virus (HIV) and is currently managed with medication under the care of an infectious disease specialist at [facility]. She is also on bupropion for depression, which she follows up with psychiatry. The patient reports experiencing herpes simplex virus (HSV) outbreaks approximately three to four times a year. She expresses concern about transmitting the virus to partners and is considering daily suppressive therapy with valacyclovir. Her family history includes prostate cancer in her father, while her mother has no significant health issues. She has a history of smoking cessation and consumes wine and hard liquor a few times a week. [facility] Medical History Screen for colon cancer Overweight (BMI 25.0-29.9) SHIRA (generalized anxiety disorder) Mild recurrent major depression Seizures Depression with anxiety ADD (attention deficit disorder) HIV (human immunodeficiency virus infection) Surgical History No history of previous surgery Family History Father Prostate cancer Mother No problems noted. Maternal Aunt Breast cancer Unknown Colon cancer, Onset Age: 20 Social History Housing: Apartment Alcohol intake: current Alcohol intake frequency: a few times a week Alcohol type: beer, wine and hard liquor Comment: 2x a week 2-3 drinks Patient Tobacco Use Status: Former Tobacco user Tobacco use type: Cigarette Cigarette Packs Per Day: 0.25 Cigarettes Per Day: 3 Years Smoked: quit 2022( 1/2 pack a day 16 - 43 y/o) e-Cigarette/Vaping Use: Never Used Second Hand Smoke Exposure: Yes service: No Current occupational status: employed Current occupational exposures/hazards: No Cognitive needs: No Hearing needs: No Vision needs: Yes Questionnaire PHQ-9 Over the last 2 weeks, how often have you been bothered by any of the following problems? 1. Little interest or pleasure in doing things: several days 2. Feeling down, depressed, or hopeless: several days 3. Trouble falling or staying asleep, or sleeping too much: several days 4. Feeling tired or having little energy: several days 5. Poor appetite or overeating: not at all 6. Feeling bad about yourself - or that you are a failure or have let yourself or your family down: several days 7. Trouble concentrating on things, such as reading the newspaper or watching television: not at all 8. Moving or speaking so slowly that other people could have noticed. Or the opposite - being so fidgety or restless that you have been moving around a lot more than usual: not at all 9. Thoughts that you would be better off or of hurting yourself in some way: not at all Total score: 5 Depression Screening Interpretation: Positive Depression Screening Follow-up: Existing condition, In treatment, Community Mental Health Worker F/U and Follow-up Visit Requested Depression Screening Done: Yes 15438 - PHQ-9 Billing: Yes Source: Developed by Drs. Elliott Sánchez, Jesse Tidwell and colleagues, with an educational anatoliy from [employer]. Thrive Questionnaire Date Thrive assessed: 12/20/24 I am a: Patient What is your living situation today?: I have a steady place to live Within the past 12 months, did the food you bought not last and you didn't have the money to get more?: Never true Within the past 12 months, did you worry whether your food would run out before you got money to buy more?: Never true Do you have trouble paying for medicines?: No Do you have trouble getting transportation to medical appointments?: No Do you have trouble paying your heating and electricity bill?: No Do you have trouble taking care of your child, family member or friend?: No Do you have trouble with day-to-day activities such as bathing, preparing meals, shopping, managing finances, etc.?: No Are you currently unemployed and looking for a job?: No Are you interested in more education?: No Please select the resources that you would like help with: None Currently or been in a relationship where the following occur: No concerns reported THRIVE Score: 0 AUDIT C Alcohol Use Questionnaire (AUDIT-C) 1. How often do you have a drink containing alcohol?: 2-3 times a week 2. How many drinks containing alcohol do you have on a typical day when you are drinking?: 1 or 2 3. How often do you have six or more drinks on one occasion?: Never Total Score: 3 SHIRA-7 AMB Questionnaire SHIRA-7 Date SHIRA - 7 assessed: 12/22/24 Feeling nervous, anxious, or on edge: 1 = Several days Not being able to stop or control worryin = Not at all Worrying too much about different things: 1 = Several days Trouble relaxin = Several days Being so restless that it is hard to sit still: 0 = Not at all Becoming easily annoyed or irritable: 0 = Not at all Feeling afraid as if something awful might happen: 0 = Not at all Total SHIRA-7 score (0-4 normal; 5-9 mild; 10-14 moderate; 15-21 severe): 3 Source: Developed by Yessy Lowe Kurt Kroenke and colleagues, with an educational anatoliy from [employer]. SHIRA-7 Assessment Billing SHIRA-7 Assessment Tool: SHIRA-7 Assessment 58368 Review of Systems Const All systems reviewed & are unremarkable except as noted in HPI and below Card Denies chest pain at rest, Denies chest pain with activity, Denies edema, Denies irregular heart rhythm, Denies claudication, Denies dyspnea, Denies dyspnea on exertion, Denies orthopnea, Denies paroxysmal nocturnal dyspnea and Denies slow heart rate Resp Denies cough, Denies dyspnea and Denies dyspnea on exertion Physical exam (Primary Care) Vital Signs: Last Vital Signs Temp 97.0 F 05/09/25 16:33 Pulse 69 05/09/25 16:33 BP 112/84 05/09/25 16:33 Pulse Ox 98 05/09/25 16:33 Oxygen Delivery Method Room Air 05/09/25 16:33 BMI result Body Mass Index 24.2 Tobacco/Smoking Status: Tobacco use Status Tobacco use date assessed 05/09/25 05/09/25 16:38 Patient Tobacco Use Status Former Tobacco user 05/09/25 16:38 Tobacco use type Cigarette 05/09/25 16:38 e-Cigarette/Vaping Use Never Used 05/09/25 16:38 PHQ-9: PHQ-9 Score PHQ-9: Total score 5 05/09/25 16:38 Depression Screening Interpretation: Positive Depression Screening Follow-up: Existing condition, In treatment, Community Mental Health Worker F/U and Follow-up Visit Requested Thrive Assessment: Date of Thrive Assessment Date Thrive assessed 12/20/24 05/09/25 16:38 Currently or been in a relationship where the following occur: No concerns reported [facility] Head: Yes normal to inspection, Yes normocephalic and Yes atraumatic Ears: external ears normal Eyes General: appearance normal, both eyes and all related structures Eyelids: Yes eyelids normal Conjunctivae: conjunctivae normal Neck Neck: Yes normal visual inspection and Yes supple Resp Effort & Inspection: normal respiratory effort Auscultation: clear to auscultation bilaterally Cardio Jugular venous distension: no JVD Rate: regular rate Rhythm: regular rhythm Heart sounds: S1 normal heart sound present and S2 normal heart sound present GI Inspection: Yes normal to inspection Palpation (GI): Soft to palpation and nontender Auscultation: normal bowel sounds Skin General skin exam: no rashes or lesions noted Neuro General: no focal motor deficits Extrem General: Yes full ROM Psych Appearance: grossly normal Office Procedures Flu Questionnaire Does the patient have a severe egg allergy?: No Does the patient have severe life threatening allergies?: No Does the patient have a fever or illness today?: No Has the patient ever had Guillain-Mosinee Syndrome?: No Has the patient ever had any past reaction to a flu shot?: No Immunizations Fluarix [id number] (PF) 45 mcg (15 mcg x 3)/0.5 mL IM syringe Performing Provider: Olivia Jones MD [facility] Administered by: Wendi Ortega CMA on 05/09/25 16:42 Dose Route Admin Location Dispensed Lot Number Expiration Date [facility] Compound Machine Operator 0.5 mL IM Right Deltoid 0.5 mL [id number] 01/23/26 [id number] [employer] VIS Given Date VIS Provided VIS Publication Date 05/09/25 Single Vaccine 24 Eligibility Eligibility Date Funding Source Not [facility] Eligible 05/09/25 Private Coding Level of Care Code Est Pt Prev Care 40-64y(16572) Diagnoses Encounter for physical examination Z00.00 Mild recurrent major depression F33.0 Additional Codes PHQ-9 - 46552 - PHQ-9 Billing: Yes ([id number]) SHIRA-7 Assessment Billing - SHIRA-7 Assessment Tool: SHIRA-7 Assessment 12753 ([id number]) Time Spent (min) 30 Assessment & Plan Assessment & Plan (1) Encounter for physical examination: Code(s): Z00.00 - Encounter for general adult medical examination without abnormal findings Category: Medical (2) Mild recurrent major depression: Code(s): F33.0 - Major depressive disorder, recurrent, mild Category: Medical Plan Plan Patient was informed and verbally consented to the use of an ambient scribe for clinic note documentation during this visit. 1. Physical exam The patient is up to date with her mammogram and colonoscopy screenings, and her next tetanus vaccination is due in 2026. Orders: Orders Influenza [id number] Immunization Today Z23 - Encounter for immunization Medications: Changed From valacyclovir 1,000 mg PO TID 7 days 21 tabs 2RF B00.9 - Herpesviral infection, unspecified To valacyclovir 1,000 mg PO DAILY 90 tabs 3RF 90 days B00.9 - Herpesviral infection, unspecified
--- OUTSIDE RECORDS SUMMARY | 2025-05-09 18:41 | XMS_ITS | Clinical Summary ---
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
== END 2025-05-09 16:56 | disposition home or self-care (01) ==
LOC: HO.HMCH 16:32
PROVIDERS: PCP Internal Medicine; Visit Provider Internal Medicine
DX: Z00.00 Encounter for general adult medical examination without abnormal findings (principal); F33.0 Major depressive disorder, recurrent, mild; Z23 Encounter for immunization

== ENCOUNTER → 2025-05-09 16:31 | Outpatient (BNVA) | payer OTHER, SELFPAY | PROVIDERS: PCP Internal Medicine; Visit Provider Internal Medicine | DX: Z00.00 Encounter for general adult medical examination without abnormal findings (principal); B20 Human immunodeficiency virus [HIV] disease; B00.9 Herpesviral infection, unspecified; F33.0 Major depressive disorder, recurrent, mild; Z23 Encounter for immunization; Z87.891 Personal history of nicotine dependence | CPT/HCPCS: 90471; 90656; 96127 ==